=== PATIENT | female | born 1945 | race Caucasian/White ===

== ENCOUNTER 2018-02-27 13:09 | Emergency (ER) | payer MEDICARE ==
[~2018-02-27] VITALS: Ht 160 cm; Wt 90.7 kg
[2018-02-27 13:58] VITALS: BP 116/69
--- NOTE | 2018-02-27 15:47 | PHYS DOC ---
Past History Past Medical History: Bronchitis, Depression, High Cholesterol, Hypertension Past Surgical History: Tonsillectomy, Other Additional Smoking Information: 1/4 PACK/DAY Alcohol Use: Rarely Drug Use: None Adult General Chief Complaint Chief Complaint: DENTAL PROBLEM HPI HPI 73-year-old female presents with inability to remove a dental appliance. 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 She felt her lower partial denture come dislodged. When the patient went to remove the appliance she found that she could not get it out of her mouth. The appliance felt like it was pulling on her tongue. She denies any other injuries or complaints. Review of Systems Review of Systems Constitutional: Denies fever or chills [] Eyes: Denies change in visual acuity, redness, or eye pain [] HENT: Dental appliance stuck in her mouth[] Respiratory: Denies cough or shortness of breath [] Cardiovascular: No additional information not addressed in HPI [] GI: Denies abdominal pain, nausea, vomiting, bloody stools or diarrhea [] : Denies dysuria or hematuria [] Musculoskeletal: Denies back pain or joint pain [] Integument: Denies rash or skin lesions [] Neurologic: Denies headache, focal weakness or sensory changes [] Endocrine: Denies polyuria or polydipsia [] All other systems were reviewed and found to be within normal limits, except as documented in this note. Allergies Allergies Allergies Coded Allergies Type Severity Reaction Last Updated Verified No Known Drug Allergies 02/27/18 No Physical Exam Physical Exam Constitutional: Well developed, well nourished, no acute distress, non-toxic appearance. [] HENT: Normocephalic, atraumatic, bilateral external ears normal, oropharynx moist. The lower dental appliance had punctured a section of frenulum of the tongue. There was no bleeding.[] Eyes: PERRLA, EOMI, conjunctiva normal, no discharge. [] Neck: Normal range of motion, no tenderness, supple, no stridor. [] Cardiovascular:Heart rate regular rhythm, no murmur [] Lungs & Thorax: Bilateral breath sounds clear to auscultation [] Abdomen: Bowel sounds normal, soft, no tenderness, no masses, no pulsatile masses. [] Skin: Warm, dry, no erythema, no rash. [] Back: No tenderness, no CVA tenderness. [] Extremities: No tenderness, no cyanosis, no clubbing, ROM intact, no edema. [] Neurologic: Alert and oriented X 3, normal motor function, normal sensory function, no focal deficits noted. [] Psychologic: Affect normal, judgement normal, mood normal. [] Current Patient Data Vital Signs Vital Signs Date Time Temp Pulse Resp B/P (MAP) Pulse Ox O2 Delivery O2 Flow Rate FiO2 02/27/18 13:58 88 98 02/27/18 13:25 98.4 16 Room Air EKG EKG [] Radiology/Procedures Radiology/Procedures [] Course & Med Decision Making Course & Med Decision Making Pertinent Labs and Imaging studies reviewed. (See chart for details) Section of the patient's problem was stuck on the appliance. A small bar on the appliance and punctured through the frenulum. There was no bleeding. No additional trauma was noted. I was able to pull this up off of the appliance and then removed the appliance from her mouth. She tolerated it well. There were no complications. [] Dragon Disclaimer Dragon Disclaimer This electronic medical record was generated, in whole or in part, using a voice recognition dictation system. Departure Departure: Impression: Primary Impression: Superficial foreign body of oral cavity, initial encounter Disposition: 01 HOME, SELF-CARE Condition: STABLE RONY MCLAIN Feb 27, 2018 15:47
== END 2018-02-27 13:59 | disposition home or self-care (01) ==
LOC: ER 13:09
DX: S00.552A Superficial foreign body of oral cavity, initial encounter (principal); E78.00 Pure hypercholesterolemia, unspecified; I10 Essential (primary) hypertension; F17.200 Nicotine dependence, unspecified, uncomplicated; F32.9 Major depressive disorder, single episode, unspecified; X58.XXXA Exposure to other specified factors, initial encounter; Y93.G3 Activity, cooking and baking; Y92.89 Other specified places as the place of occurrence of the external cause; Y99.0 Civilian activity done for income or pay
CPT/HCPCS: 40804; 99284

== ENCOUNTER → 2018-05-09 | Outpatient (CLI) | payer MEDICARE ==
--- NOTE | 2018-05-09 15:51 | RAD ---
EXAM: Dual energy x-ray absorptiometry (DEXA). HISTORY: Post menopausal female presents for osteoporosis screening. COMPARISON: None. TECHNIQUE: Dual energy x-ray absorptiometry of the lumbar spine and right hip was performed. Calculation of bone mineral density based on standard deviations above or below the expected young adult normal value (T-score) was completed. FINDINGS: The average bone mineral density in the 1st through 4th lumbar vertebrae is 0.832 g/cmxcm, corresponding with a T-score of -2.9. The average total bone mineral density in the right hip is 0.587 g/cmxcm, corresponding with a T-score of -3.0. IMPRESSION: Osteoporosis measured at the lumbar spine and right hip. Note: Definitions established by the World Health Organization: 1. Normal: T-score is -1.0 or above. 2. Osteopenia: T-score is between -1.0 and -2.5 . 3. Osteoporosis: T-score is -2.5 or below. Electronically signed by: Desirae Barrientos MD (05/09/2018 3:47 PM) [place] [id number]
--- NOTE | 2018-05-10 07:30 | RAD ---
DATE: 05/09/2018 EXAM: MAMMO MATILDA SCREENING BILATERAL HISTORY: Screening Mammogram COMPARISON: Mammogram 05/13/20152009 This study was interpreted with the benefit of Computerized Aided Detection (CAD). The breast parenchyma shows scattered fibroglandular densities. Breast parenchyma level B. FINDINGS: Bilateral digital 2-D and 3-D tomosynthesis CC and MLO views. There is a stable focal asymmetry in the upper outer right breast, middle depth since 2010 examination and consider benign. There is a focal asymmetry in the upper outer left breast, middle depth. IMPRESSION: Left upper outer breast focal asymmetry. Spot compression CC and MLO views, full field MLO view and same-day ultrasound is recommended for further evaluation. BI-RADS CATEGORY: 0 INCOMPLETE: NEEDS ADDITIONAL IMAGING EVALUATION AND/OR PRIOR MAMMOGRAMS FOR COMPARISON. RECOMMENDED FOLLOW-UP: ADD ADDITIONAL IMAGING PQRS compliance statement: Patient information was entered into a reminder system with a target due date for the next mammogram. Mammography is a sensitive method for finding small breast cancers, but it does not detect them all and is not a substitute for careful clinical examination. A negative mammogram does not negate a clinically suspicious finding and should not result in delay in biopsying a clinically suspicious abnormality. "Our facility is accredited by the [employer] Mammography Program."
== END | disposition home or self-care (01) ==
LOC: DXRAD 13:56
PROVIDERS: ATTEND Specialist
DX: Z12.31 Encounter for screening mammogram for malignant neoplasm of breast (principal); M85.89 Other specified disorders of bone density and structure, multiple sites; Z78.0 Asymptomatic menopausal state
CPT/HCPCS: 77063; 77067; 77080

== ENCOUNTER → 2018-06-02 | Outpatient (CLI) | payer MEDICARE ==
--- NOTE | 2018-06-02 16:15 | RAD ---
DATE: 06/02/2018 EXAM: DIGITAL DIAGNOSTIC LT, BREAST LEFT HISTORY: Suspicious screening study COMPARISON: 05/09/2018 This study was interpreted with the benefit of Computerized Aided Detection (CAD). Breast Density: SCATTERED The breast parenchyma shows scattered fibroglandular densities. Breast parenchyma level B. FINDINGS: The screening study demonstrated a small asymmetric opacity in the lateral aspect of left breast at approximately the 2:00 location, best demonstrated on CC tomosynthesis image #57. This opacity was last clearly demonstrated on today's spot compression views, presumably due to technical factors such as overlying fibroglandular tissues. Left breast ultrasound, 06/02/2018: A targeted ultrasound exam of the left breast was performed in the upper outer quadrant. At the 2:30 location approximately 4 cm from the nipple there is an oval-shaped smooth nodule measuring 6 x 5 x 2 mm. There are faint low level internal echoes. This structure is wider than tall. No definite posterior acoustic enhancement or shadowing is seen. No internal vascularity is seen. This lesion has a fairly benign appearance, most likely a complicated cyst. It probably corresponds to the density seen mammographically, however, that cannot be stated with certainty. No other abnormal fluid collection or solid mass is seen in this region. IMPRESSION: Probably benign left breast nodule as described above. Follow-up left mammography and left breast ultrasound in 6 months is suggested. BI-RADS CATEGORY: 3 PROBABLY BENIGN FINDING(S)-SHORT INTERVAL FOLLOW-UP SUGGESTED RECOMMENDED FOLLOW-UP: 6M 6 MONTH FOLLOW-UP PQRS compliance statement: Patient information was entered into a reminder system with a target due date for the next mammogram. Mammography is a sensitive method for finding small breast cancers, but it does not detect them all and is not a substitute for careful clinical examination. A negative mammogram does not negate a clinically suspicious finding and should not result in delay in biopsying a clinically suspicious abnormality. "Our facility is accredited by the [employer] Mammography Program."
== END | disposition home or self-care (01) ==
LOC: MAMMO 14:57
PROVIDERS: ATTEND Specialist
DX: N63.21 Unspecified lump in the left breast, upper outer quadrant (principal)
CPT/HCPCS: 76641; 77065

== ENCOUNTER 2018-08-30 12:28 | Inpatient (IN) | payer MEDICARE ==
[~2018-08-30] VITALS: Ht 160 cm; Wt 101.6 kg
[2018-08-30] MEDS ORDERED: ASPIRIN 81 MG TAB.CHEW ONE (12:57)
--- NOTE | 2018-08-30 12:59 | PHYS DOC ---
Past History Past Medical History: Angina, COPD, GERD, High Cholesterol, Hypertension Past Surgical History: Tonsillectomy, Other Alcohol Use: None Drug Use: None Adult General Chief Complaint Chief Complaint: CHEST PAIN HPI HPI Patient is a 73 year old female who presents with complaint of chest pain. The patient states that she awoke with chest pain this morning. States that she started noticing tingling in her left arm during the middle of the night that was present when she woke up this morning. States over the past few hours she has had persistent substernal chest pain. Notes associated nausea but no vomiting or shortness of breath. 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 She states however she is not followed up with internal auditor over the past 10 years. The patient denies fever. Rates pain currently as 3 out of 10. Has not taking medications for symptoms. Has history of hypertension, hyperlipidemia. Review of Systems Review of Systems Constitutional: Denies fever or chills [] Eyes: Denies change in visual acuity, redness, or eye pain [] HENT: Denies nasal congestion or sore throat [] Respiratory: Denies cough or shortness of breath [] Cardiovascular: Chest pain, denies edema[] GI: Nausea, denies abdominal pain, vomiting, bloody stools or diarrhea [] : Denies dysuria or hematuria [] Musculoskeletal: Denies back pain or joint pain [] Integument: Denies rash or skin lesions [] Neurologic: Numbness to left arm, denies weakness[] All other systems were reviewed and found to be within normal limits, except as documented in this note. Current Medications Current Medications Current Medications Medications (Trade) Dose Ordered Sig/Kibmerly Start Time Stop Time Status Last Admin Dose Admin Aspirin (Children'S Aspirin) 324 mg 1X ONCE 08/30/18 13:00 08/30/18 13:01 UNV Sodium Chloride 500 ml @ 0 mls/hr 1X ONCE 08/30/18 13:00 08/30/18 13:01 UNV Allergies Allergies Allergies Coded Allergies Type Severity Reaction Last Updated Verified No Known Drug Allergies 02/27/18 No Physical Exam Physical Exam Constitutional: Alert, afebrile, no acute distress. [] HENT: Normocephalic, atraumatic, bilateral external ears normal, oropharynx moist, no oral exudates, nose normal. [] Eyes: PERRLA, EOMI, conjunctiva normal, no discharge. [] Neck: Normal range of motion, no tenderness, supple, no stridor. [] Cardiovascular:Heart rate regular rhythm, no murmur [] Lungs & Thorax: Bilateral breath sounds clear to auscultation [] Abdomen: Bowel sounds normal, soft, no tenderness, no masses, no pulsatile masses. [] Skin: Warm, dry, no erythema, no rash. [] Back: No tenderness, no CVA tenderness. [] Extremities: No tenderness, no cyanosis, no clubbing, ROM intact, no edema. [] Neurologic: Alert and oriented X 3, normal motor function, normal sensory function, no focal deficits noted. [] Current Patient Data Vital Signs Vital Signs Date Time Temp Pulse Resp B/P (MAP) Pulse Ox O2 Delivery O2 Flow Rate FiO2 08/30/18 12:40 97.8 91 18 95 Room Air Lab Results Laboratory Tests Test 08/30/18 12:45 08/30/18 13:12 White Blood Count 7.1 x10^3/uL Red Blood Count 4.88 x10^6/uL Hemoglobin 14.8 g/dL Hematocrit 44.7 % Mean Corpuscular Volume 92 fL Mean Corpuscular Hemoglobin 30 pg Mean Corpuscular Hemoglobin Concent 33 g/dL Red Cell Distribution Width 13.9 % Platelet Count 170 x10^3/uL Neutrophils (%) (Auto) 65 % Lymphocytes (%) (Auto) 27 % Monocytes (%) (Auto) 7 % Eosinophils (%) (Auto) 1 % Basophils (%) (Auto) 1 % Neutrophils # (Auto) 4.6 x10^3uL Lymphocytes # (Auto) 1.9 x10^3/uL Monocytes # (Auto) 0.5 x10^3/uL Eosinophils # (Auto) 0.0 x10^3/uL Basophils # (Auto) 0.0 x10^3/uL Troponin I Quantitative < 0.017 ng/mL Sodium Level 143 mmol/L Potassium Level 4.4 mmol/L Chloride Level 106 mmol/L Carbon Dioxide Level 28 mmol/L Anion Gap 9 Blood Urea Nitrogen 11 mg/dL Creatinine 0.8 mg/dL Estimated GFR (Cockcroft-Gault) 70.1 BUN/Creatinine Ratio 14 Glucose Level 149 mg/dL Calcium Level 8.5 mg/dL Magnesium Level 1.9 mg/dL Total Bilirubin 0.3 mg/dL Aspartate Amino Transf (AST/SGOT) 41 U/L Alanine Aminotransferase (ALT/SGPT) 58 U/L Alkaline Phosphatase 114 U/L Creatine Kinase 35 U/L Creatine Kinase MB (Mass) 0.5 ng/mL Creatine Kinase MB Relative Index 1.4 % CE-Xah-A-Type Natriuretic Peptide 105 pg/mL Total Protein 6.2 g/dL Albumin 3.4 g/dL Albumin/Globulin Ratio 1.2 Lipase 110 U/L Current Medications Medications (Trade) Dose Ordered Sig/Kimberly Route PRN Reason Start Time Stop Time Status Last Admin Dose Admin Aspirin (Children'S Aspirin) 324 mg 1X ONCE PO 08/30/18 13:15 08/30/18 13:16 DC 08/30/18 13:01 Sodium Chloride 500 ml @ 0 mls/hr 1X ONCE IV 08/30/18 13:00 08/30/18 13:02 DC 08/30/18 13:01 Aspirin (Children'S Aspirin) 81 mg STK-MED ONCE .ROUTE 08/30/18 12:57 08/30/18 12:58 DC EKG EKG Interpreted by me: Heart rate 87, sinus rhythm, leftward axis, normal intervals, no acute ST/T-wave abnormalities present[] Radiology/Procedures Radiology/[place] [address] IMAGING REPORT Signed PATIENT: DARLENE STRATTON ACCOUNT: [id number] : 1945 LOCATION: ER AGE: 73 SEX: F EXAM STATUS: REG ER ORD. PHYSICIAN: FREDI CHRIS MD REASON: CHEST PAIN PROCEDURE: PORTABLE CHEST 1V EXAM: Chest, single view. HISTORY: Chest pain. COMPARISON: None. FINDINGS: A frontal view of the chest is obtained. There is no infiltrate, pleural effusion or pneumothorax. The heart is normal in size for portable technique. IMPRESSION: No acute pulmonary finding. Electronically signed by: Desirae Butterfield MD (08/30/2018 1:26 PM) [place] [id number] DICTATED AND SIGNED BY: DESIRAE BUTTERFIELD MD DATE: 08/30/18 1326 CC: FREDI CHRIS MD; CARIN NOBLES MD ~ [] Course & Med Decision Making Course & Med Decision Making Pertinent Labs and Imaging studies reviewed. (See chart for details) Heart score is 6. Initial troponin negative. The patient was given aspirin. Patient states that her pain is 1 out of 10 on reevaluation. Given age and risk factors, the patient will need admission to the hospital for rule out of m yocardial infarction. I spoke with Dr. Marvin who accepted care of patient in hospital. A consult was placed to Dr. Ruiz of cardiology to follow with patient in hospital.[] Dragon Disclaimer Dragon Disclaimer This electronic medical record was generated, in whole or in part, using a voice recognition dictation system. Departure Departure: Impression: Primary Impression: Chest pain Additional Impressions: Hypertension Hyperlipidemia Disposition: ADMITTED INPATIENT Admitting Physician: Iron Marvin Condition: STABLE Referrals: CARIN NOBLES MD (PCP) Problem Qualifiers Primary Impression: Chest pain Chest pain type: unspecified Qualified Codes: R07.9 - Chest pain, unspecified Additional Impressions: Hypertension Hypertension type: unspecified Qualified Codes: I10 - Essential (primary) hypertension Hyperlipidemia Hyperlipidemia type: unspecified Qualified Codes: E78.5 - Hyperlipidemia, unspecified FREDI CHRIS MD August 30, 2018 12:59
[2018-08-30] MEDS ORDERED: IV NORMAL SALINE 500ML 500 ML IV ONE (13:00)
[2018-08-30 13:01] LABS: BASO % 1 % (0-3); EOS % 1 % (0-3); HEMATOCRIT 44.7 % (36.0-47.0); HEMOGLOBIN 14.8 g/dL (12.0-15.5); LYMPH # 1.9 x10^3/uL (1.0-4.8); LYMPH % 27 % (24-48); MEAN CORPUSCULAR HEMOGLOBIN 30 pg (25-35); MEAN CORPUSCULAR HGB CONC 33 g/dL (31-37); MEAN CORPUSCULAR VOLUME 92 fL (79-100); MONO # 0.5 x10^3/uL (0.0-1.1); MONO % 7 % (0-9); NEUT # 4.6 x10^3uL (1.8-7.7); NEUT % 65 % (31-73); PLATELET COUNT 170 x10^3/uL (140-400); RED BLOOD COUNT 4.88 x10^6/uL (3.50-5.40); RED CELL DISTRIBUTION WIDTH 13.9 % (11.5-14.5); WHITE BLOOD COUNT 7.1 x10^3/uL (4.0-11.0)
[2018-08-30] MEDS ORDERED: ASPIRIN 81 MG TAB.CHEW PO ONE (13:15)
--- NOTE | 2018-08-30 13:29 | RAD ---
EXAM: Chest, single view. HISTORY: Chest pain. COMPARISON: None. FINDINGS: A frontal view of the chest is obtained. There is no infiltrate, pleural effusion or pneumothorax. The heart is normal in size for portable technique. IMPRESSION: No acute pulmonary finding. Electronically signed by: Desirae Barrientos MD (08/30/2018 1:26 PM) [place] [id number]
[2018-08-30 13:48] LABS: ALBUMIN 3.4 g/dL (3.4-5.0); ALBUMIN/GLOBULIN RATIO 1.2 (1.0-1.7); CALCIUM 8.5 mg/dL (8.5-10.1); CREATININE 0.8 mg/dL (0.6-1.0); GFR 70.1; MAGNESIUM 1.9 mg/dL (1.8-2.4); POTASSIUM 4.4 mmol/L (3.5-5.1); TOTAL BILIRUBIN 0.3 mg/dL (0.2-1.0); TOTAL PROTEIN 6.2 g/dL (6.4-8.2)
[2018-08-30] MEDS: IV NORMAL SALINE 1,000ML 1,000 ML IV SCH ×2 (14:09→22:09)
[2018-08-30] MEDS ORDERED: ACETAMINOPHEN 325 MG TABLET PO PRN (14:15)
[2018-08-30] MEDS ORDERED: ONDANSETRON PF 4 MG/2 ML VIAL. IV PRN (14:15)
[2018-08-30 16:05] VITALS: BP 111/58
[2018-08-30] MEDS ORDERED: FLUT1AER IH (16:35)
[2018-08-30] MEDS ORDERED: FLUT9.9S NS (16:35)
[2018-08-30] MEDS ORDERED: ROPI0.5T PO (16:35)
[2018-08-30] MEDS ORDERED: CITA40TA12 PO (16:35)
[2018-08-30] MEDS ORDERED: CALC600T4 PO (16:35)
[2018-08-30] MEDS ORDERED: OMEG-33 PO (16:35)
[2018-08-30] MEDS ORDERED: RALO60TA PO (16:35)
[2018-08-30] MEDS ORDERED: LANS30CA66 PO (16:35)
[2018-08-30] MEDS ORDERED: MULT-496 PO (16:35)
[2018-08-30] MEDS ORDERED: CRAN500T2 PO (16:35)
[2018-08-30] MEDS ORDERED: ATOR20TA PO (16:42)
--- NOTE | 2018-08-30 17:25 | CONS ---
DATE OF CONSULTATION: 08/30/2018 REASON FOR CONSULTATION: Chest pain. CONSULTING PHYSICIAN: Iron Marvin MD HISTORY OF PRESENT ILLNESS: The patient is a pleasant 73-year-old who comes to the hospital in the setting of chest pain. She apparently was having some left-sided chest pain with some tingling down her left arm, which woke her up from sleep and she arrived to the ER. She states that this pain was intermittent. She has not had any such pain in the recent past. Previously, she was diagnosed with what appears to be vasospasm and/or Prinzmetal angina from her description and apparently was given nitroglycerin, and this was approximately 10 years ago. Since 10 years ago, she has not had any recurrence up until now. Unfortunately, she is under quite a lot of stress as this is the anniversary of her 's sudden passing. She reports compliance with her medications for hypertension, dyslipidemia as well as GERD and chronic obstructive pulmonary disease, likely related to her smoking. 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 PAST MEDICAL HISTORY: 1. Hypertension. 2. Tobacco abuse. 3. Dyslipidemia. 4. GERD. 5. Chronic bronchitis. 6. Obesity. 7. Prinzmetal angina. SOCIAL HISTORY: The patient smokes about 4 cigarettes daily. Denies any alcohol. She is . No illicit drug use. ALLERGIES: No known drug allergies. CURRENT CARDIOVASCULAR MEDICATIONS: 1. [place]-3 fatty acids. 2. Breo Ellipta. REVIEW OF SYSTEMS: Negative for 10 out of 14 systems reviewed, unless otherwise mentioned above in HPI. PHYSICAL EXAMINATION: VITAL SIGNS: Afebrile, 75, 18, 99/42, 97% on room air. GENERAL: She is alert and oriented, in no acute distress. HEAD AND NECK: Unremarkable. CARDIAC: Regular rate and rhythm without murmurs, rubs or gallops. LUNGS: Clear to auscultation bilaterally. ABDOMEN: Obese, protuberant, nontender, nondistended. EXTREMITIES: No clubbing, cyanosis or edema with 2+ radial and dorsalis pedis pulses. NEUROLOGIC: No focal deficits. MUSCULOSKELETAL: No trauma. DIAGNOSTIC STUDIES: EKG demonstrates sinus rhythm with a prior inferior infarct. CBC, BMP and initial cardiac enzymes are negative. Chest x-ray is unremarkable. IMPRESSION: Atypical chest pain. Differential diagnosis is broad and may include her Prinzmetal angina, she has had significant stressors and this may be stress-induced as well. Cannot rule out underlying obstructive coronary disease, although currently she appears to be low risk based on a negative biomarker and nonacute EKG. RECOMMENDATIONS: Monitor overnight. If no acute events overnight, we will send home on nitroglycerin as needed and consider addition of beta kartik. Otherwise, plan for outpatient stress testing. Thank you for this consultation. BECCA HAYNES MD DR: JC/jose ramon JOB#: [id number] / [id number]
[2018-08-30 18:54] VITALS: BP 107/80
[2018-08-30 22:58] VITALS: BP 115/72
[2018-08-31 05:09] VITALS: BP 117/77
[2018-08-31] MEDS: IV NORMAL SALINE 1,000ML 1,000 ML IV SCH (06:09)
--- NOTE | 2018-08-31 06:37 | EKG ---
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
--- NOTE | 2018-08-31 08:21 | PDOC ---
CARDIO Progress Notes Date & Time Date of Service DATE: 08/31/18 TIME: 08:18 Time of Evaluation 08:18 Subjective Notes Feeling better this morning. No further chest pain overnight Vitals Vitals Vital Signs Date Time Temp Pulse Resp B/P (MAP) Pulse Ox O2 Delivery O2 Flow Rate FiO2 08/31/18 05:09 97.6 65 18 117/77 (90) 94 Room Air Weight Weight [ ] Input and Output I.O. Intake and Output 08/31/18 07:00 Intake Total 500 ml Balance 500 ml IV Total 500 ml Laboratory Labs Laboratory Tests Test 08/30/18 12:45 08/30/18 13:12 08/30/18 17:45 08/30/18 21:30 White Blood Count 7.1 x10^3/uL (4.0-11.0) Red Blood Count 4.88 x10^6/uL (3.50-5.40) Hemoglobin 14.8 g/dL (12.0-15.5) Hematocrit 44.7 % (36.0-47.0) Mean Corpuscular Volume 92 fL (79-100) Mean Corpuscular Hemoglobin 30 pg (25-35) Mean Corpuscular Hemoglobin Concent 33 g/dL (31-37) Red Cell Distribution Width 13.9 % (11.5-14.5) Platelet Count 170 x10^3/uL (140-400) Neutrophils (%) (Auto) 65 % (31-73) Lymphocytes (%) (Auto) 27 % (24-48) Monocytes (%) (Auto) 7 % (0-9) Eosinophils (%) (Auto) 1 % (0-3) Basophils (%) (Auto) 1 % (0-3) Neutrophils # (Auto) 4.6 x10^3uL (1.8-7.7) Lymphocytes # (Auto) 1.9 x10^3/uL (1.0-4.8) Monocytes # (Auto) 0.5 x10^3/uL (0.0-1.1) Eosinophils # (Auto) 0.0 x10^3/uL (0.0-0.7) Basophils # (Auto) 0.0 x10^3/uL (0.0-0.2) Troponin I Quantitative < 0.017 ng/mL (0-0.055) < 0.017 ng/mL (0-0.055) < 0.017 ng/mL (0-0.055) Sodium Level 143 mmol/L (136-145) Potassium Level 4.4 mmol/L (3.5-5.1) Chloride Level 106 mmol/L (98-107) Carbon Dioxide Level 28 mmol/L (21-32) Anion Gap 9 (6-14) Blood Urea Nitrogen 11 mg/dL (7-20) Creatinine 0.8 mg/dL (0.6-1.0) Estimated GFR (Cockcroft-Gault) 70.1 BUN/Creatinine Ratio 14 (6-20) Glucose Level 149 mg/dL (70-99) Calcium Level 8.5 mg/dL (8.5-10.1) Magnesium Level 1.9 mg/dL (1.8-2.4) Total Bilirubin 0.3 mg/dL (0.2-1.0) Aspartate Amino Transf (AST/SGOT) 41 U/L (15-37) Alanine Aminotransferase (ALT/SGPT) 58 U/L (14-59) Alkaline Phosphatase 114 U/L (46-116) Creatine Kinase 35 U/L (26-192) Creatine Kinase MB (Mass) 0.5 ng/mL (0.0-3.6) Creatine Kinase MB Relative Index 1.4 % (0-4) BN-Rdv-G-Type Natriuretic Peptide 105 pg/mL (0-124) Total Protein 6.2 g/dL (6.4-8.2) Albumin 3.4 g/dL (3.4-5.0) Albumin/Globulin Ratio 1.2 (1.0-1.7) Lipase 110 U/L (73-393) Physical Exams HEENT: Neck Supple W Full Motion Chest: Symmetric Lungs: Clear to Auscultation Heart: S1S2, RRR, no murmurs Abdomen: Soft N/T Extremities: 2+ Dorsalis Pedis, No Edema Neurology: alert, oriented, follow commands Assessment Assessment 1. Chest pain, atypical. AMI ruled out 2. Hypertension; controlled 3. Hyperlipidemia 4. GERD Recommendations Echo today to assess LV systolic function Lipid panel Continue ASA, statin Will arrange for outpatient stress test with follow up. RENA RAMOS APRN August 31, 2018 08:21
[2018-08-31] MEDS ORDERED: ASPIRIN ENTERIC COATED 81 MG TABLET.DR. PO SCH (09:00)
[2018-08-31] MEDS ORDERED: ATORVASTATIN CALCIUM 20 MG TABLET PO SCH ×2 (09:00→21:00)
[2018-08-31 10:40] VITALS: BP 106/69
[2018-08-31 15:07] VITALS: BP 133/82
--- NOTE | 2018-08-31 18:06 | HP ---
ADMIT DATE: 08/30/2018 HISTORY OF PRESENT ILLNESS: The patient is a 73-year-old female patient who came to the Emergency Room complaining of chest pain. She stated that she awoke with chest pain in the morning of admission. She started noticing also tingling in her left arm during the middle of the night that was present when she woke up on the morning of admission, her pain has persisted in the substernal area. She noted some associated nausea, but no vomiting, no shortness of breath, and no diaphoresis. 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 She also had had stress test, but cannot remember how long ago. She rated her pain as 3/10 in severity, has not taken any medications for symptoms; however, she is known to have high blood pressure, hyperlipidemia. She was investigated in the Emergency Room and her lab work showed that her first set of cardiac enzyme was less than 0.017. She was admitted and has had to do 2 more sets of cardiac enzyme, check her fasting lipid profile and consult the gas appliance mechanic. PAST MEDICAL HISTORY: Significant for hypertension, hyperlipidemia, gastroesophageal reflux disease, obstructive sleep apnea. PAST SURGICAL HISTORY: Significant for tonsillectomy, D and C, left heart catheterization, esophagogastroduodenoscopy and colonoscopy with polypectomy. ALLERGIES: She has no known drug allergies. MEDICATIONS: She is currently on following medications: She is on atorvastatin calcium 20 mg at bedtime, omega-3 fatty acid 1000 mg softgel to take 2 capsules once a day, citalopram hydrobromide 40 mg daily, Requip 0.5 mg, she takes 2 tablets at bedtime; calcium carbonate 1200 mg twice a day; fluticasone/vilanterol for Breo Ellipta 1 puff once a day; Flonase 2 sprays to each nostril once a day; lansoprazole 30 mg once a day; raloxifene for Evista 60 mg once a day, multivitamin 1 tablet once a day, cranberry extract 500 mg daily. FAMILY HISTORY: She has 2 brothers and 2 sisters, 1 sister is older and still alive, has diabetes, lymphoma, osteoarthritis; the younger sister has hypertension, underwent lumpectomy and bilateral total knee arthroplasty. Her older brother has permanent pacemaker and hypertension; the younger brother of diabetes, myocardial infarction at age 61. Her father at the age of 85 because of COPD and bladder cancer. Mother at the age of 89 because of breast cancer and diabetes. SOCIAL HISTORY: She is , has 3 sons. Smokes about 5 cigarettes per day, does not drink alcohol. 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 REVIEW OF SYSTEMS: The patient denied any blurring of vision, cataract, glaucoma or macular degeneration. Denied any earache, tinnitus or sensorineural deafness. Denied any nosebleeds, stuffy nose or postnasal drip. Denied any sore throat, sore tongue, toothache, hoarseness of voice or difficulty swallowing. Did complain of nausea, but no vomiting. Denied any diarrhea or constipation. Denied any hematemesis, melena or hematochezia. Denied any dysuria, frequency or hematuria. PHYSICAL EXAMINATION: GENERAL: On arrival to the Emergency Room, she looked well and was clearly in no apparent respiratory distress, slightly pale, but no jaundice, cyanosis, or thyromegaly. No jugular venous distension. No limb edema. VITAL SIGNS: Her heart rate was 91, blood pressure was 112/56, temperature was 97.8, respiratory rate was 18 and oxygen saturation was 95%. HEAD, EYES, EARS, NOSE, AND THROAT: Showed normocephalic, atraumatic. NECK: Supple. HEART: Showed normal first and second heart sounds. No gallop, rub or murmur. CHEST: Clear to auscultation. No crepitation or rhonchi. ABDOMEN: Distended, soft, nontender. NEUROLOGIC: She is awake, alert, responding appropriately. All her cranial nerves are intact. EXTREMITIES: She moves extremities without difficulty. She ambulates without assistance or assistive devices. LABORATORY DATA: Showed a serum sodium 143, potassium 4.4, chloride 106, bicarbonate 26, anion gap of 9, BUN 11, creatinine was 0.8, estimated GFR was 70 mL per minute. Her glucose 149, calcium was 8.5, magnesium was 1.9. Total bilirubin, AST, ALT, alkaline phosphatase were normal. Her first set of cardiac enzymes showed troponin to be less than 0.017. Her total protein was 6.2, albumin was 3.4. Her lipase was 110. Her white cell count was 7000, hemoglobin 14, hematocrit 44, MCV 92, and platelet count of 170,000 with normal manual differential. She has had an EKG, which showed that she was in sinus rhythm with a heart rate of 87, normal intervals and no acute ST-T changes. The patient was admitted to do 2 more sets of cardiac enzymes, check her fasting lipid profile, and to consult the cardiology team. EMILEE CHRISTENSEN MD DR: TESSA/jose ramon JOB#: [id number] / [id number]
--- NOTE | 2018-08-31 21:02 | DS ---
DATE OF DISCHARGE: 08/31/2018 HOSPITAL COURSE: The patient is a 73-year-old female patient who presented to the hospital with chest pain. She has also tingling of her left arm, which woke her up from sleep. She was evaluated in the Emergency Room and was admitted. She has 3 sets of cardiac enzymes showed that all of them are less than 0.017. Her serum lipase is negative and her total serum triglycerides 113, total cholesterol 145, LDL was 60, VLDL 22, and HDL was 63 and the ratio was 2. As the myocardial infarction was ruled out, the decision was made to discharge her home to arrange for her to have a nuclear stress test as an outpatient. PHYSICAL EXAMINATION: GENERAL: When I examined her this afternoon, she was sitting on the edge of the bed comfortably, in no apparent respiratory distress. No pallor or jaundice, cyanosis or thyromegaly. No jugular venous distension. No lower limb edema. VITAL SIGNS: Her heart rate was 75, blood pressure was 133/82, temperature was 98.1, respiratory rate 20 and oxygen saturation was 92%. The rest of clinical examination is stable. She had 3 sets of cardiac enzymes which were negative. DISCHARGE MEDICATIONS: She was discharged home. She was on atorvastatin calcium 20 mg at bedtime, calcium carbonate 1200 mg p.o. b.i.d., citalopram hydrobromide for Celexa 40 mg daily, cranberry extract 500 mg daily, fluticasone propionate for Flonase 2 sprays to each nostril once a day. She is on Breo Ellipta 1 inhalation once a day, lansoprazole for Prevacid 30 mg once a day, multivitamin 1 tablet once a day, omega-3 fatty acid 2 capsules twice a day, Evista 60 mg once a day and Requip 1 mg at bedtime. FINAL DISCHARGE DIAGNOSES: Chest pain, atypical, myocardial infarction ruled out, hypertension, hyperlipidemia, gastroesophageal reflux disease. Her lipid profile was well controlled. DISCHARGE PLAN: Plan is to continue with all her current medication. An echocardiogram could not be done today. Therefore, the patient was discharged to be arranged to be done as an outpatient together with outpatient stress test. EMILEE CHRISTENSEN MD DR: TESSA/jose ramon JOB#: [id number] / [id number]
== END 2018-08-31 16:59 | disposition home or self-care (01) | DRG 313 ==
LOC: ER 12:28 → 1 SOUTH 14:14 → ER 15:44
PROVIDERS: ADMIT Internal Medicine; ATTEND Internal Medicine
DX: R07.89 Other chest pain (principal); E78.00 Pure hypercholesterolemia, unspecified; E78.5 Hyperlipidemia, unspecified; F17.210 Nicotine dependence, cigarettes, uncomplicated; G47.33 Obstructive sleep apnea (adult) (pediatric); I10 Essential (primary) hypertension; J44.9 Chronic obstructive pulmonary disease, unspecified; K21.9 Gastro-esophageal reflux disease without esophagitis; E66.9 Obesity, unspecified; Z80.3 Family history of malignant neoplasm of breast; Z80.52 Family history of malignant neoplasm of bladder; Z80.7 Family history of other malignant neoplasms of lymphoid, hematopoietic and related tissues; Z82.49 Family history of ischemic heart disease and other diseases of the circulatory system; Z83.3 Family history of diabetes mellitus; Z82.5 Family history of asthma and other chronic lower respiratory diseases; Z90.49 Acquired absence of other specified parts of digestive tract; Z68.39 Body mass index [BMI] 39.0-39.9, adult
CPT/HCPCS: 36415; 71045; 80053; 80061; 82553; 83690; 83735; 83880; 84484; 85025; 93005; 96360; J7040; 99285-25

== ENCOUNTER → 2018-12-06 | Outpatient (CLI) | payer MEDICARE ==
[~2018-12-06] MED LIST: ATOR20TA PO; CALC600T4 PO; CITA40TA12 PO; CRAN500T2 PO; FLUT1AER IH; FLUT9.9S NS; LANS30CA66 PO; MULT-496 PO; OMEG-33 PO; RALO60TA PO; ROPI0.5T PO
--- NOTE | 2018-12-06 18:24 | RAD ---
DATE: 12/06/2018 EXAM: MAMMO MATILDA FABIOLAG LT HISTORY: Abnormal mammogram COMPARISON: 05/09/2018 screening mammographic exam, 06/02/2018 left unilateral digital diagnostic mammogram This study was interpreted with the benefit of Computerized Aided Detection (CAD). Breast Density: SCATTERED The breast parenchyma shows scattered fibroglandular densities. Breast parenchyma level B. FINDINGS: Asymmetry involving the left breast at the 2:00 region is similar to the prior exam. No new mass or distortion. No suspicious calcification. IMPRESSION: Stable. Follow-up of the time of annual screening is recommended to assess stability. BI-RADS CATEGORY: 3 PROBABLY BENIGN FINDING(S)-SHORT INTERVAL FOLLOW-UP SUGGESTED RECOMMENDED FOLLOW-UP: 6M 6 MONTH FOLLOW-UP PQRS compliance statement: Patient information was entered into a reminder system with a target due date at the time of annual screening for the next mammogram. Mammography is a sensitive method for finding small breast cancers, but it does not detect them all and is not a substitute for careful clinical examination. A negative mammogram does not negate a clinically suspicious finding and should not result in delay in biopsying a clinically suspicious abnormality. "Our facility is accredited by the [employer] Mammography Program."
== END | disposition home or self-care (01) ==
LOC: MAMMO 13:03
PROVIDERS: ATTEND Specialist
DX: R92.2 Inconclusive mammogram (principal)
CPT/HCPCS: 77065; G0279; 77061

== ENCOUNTER → 2019-08-22 | Outpatient (CLI) | payer MEDICARE ==
--- NOTE | 2019-08-24 18:13 | RAD ---
DATE: 08/22/2019 1:30 PM EXAM: MAMMO MATILDA SCREENING BILATERAL HISTORY: Screening COMPARISON: 05/09/2018 Bilateral CC and MLO views of the breasts were performed. Bilateral breast tomosynthesis was performed in CC and MLO projections. This study was interpreted with the benefit of Computerized Aided Detection (CAD). FINDINGS: Breast Density: FATTY The Breast Parenchyma is primarily fatty replaced. Breast parenchyma level density A. No suspicious masses, microcalcifications or architectural distortion is present to suggest malignancy in either breast. The visualized axillae are unremarkable. IMPRESSION: No mammographic evidence of malignancy. BI-RADS CATEGORY: 1 NEGATIVE RECOMMENDED FOLLOW-UP: 12M 12 MONTH FOLLOW-UP Annual screening mammography is recommended, unless clinically indicated sooner based on symptoms or change in physical exam. PQRS compliance statement: Patient information was entered into a reminder system with a target due date 08/22/2020 for the next mammogram. Mammography is a sensitive method for finding small breast cancers, but it does not detect them all and is not a substitute for careful clinical examination. A negative mammogram does not negate a clinically suspicious finding and should not result in delay in biopsying a clinically suspicious abnormality. "Our facility is accredited by the [employer] Mammography Program."
== END ==
LOC: MAMMO 13:26
PROVIDERS: ATTEND Specialist
DX: Z12.31 Encounter for screening mammogram for malignant neoplasm of breast (principal)
CPT/HCPCS: 77063; 77067

== ENCOUNTER → 2021-02-17 | Outpatient (CLI) | payer MEDICARE ==
[~2021-02-17] MED LIST changes: -CALC600T4 PO; +CALC600T60 PO; -CRAN500T2 PO; +CRAN500T3 PO
--- NOTE | 2021-02-17 16:22 | RAD ---
INDICATION: Screening for osteopenia/osteoporosis. Reason: Z00.00 / Spl. Instructions: / History: . Postmenopausal screening COMPARISON: May 2015 TECHNIQUE: Bone densitometry was performed through the lumbar spine and proximal femur. IMPRESSION: Lumbar Spine: BMD: 0.85 T-Score: -2.8 Range: Osteoporotic. Decreased by 2 percent from prior. Proximal Femur: BMD: 0.55 T-Score: -3.3 Range: Osteoporotic. Decreased by 14 percent from prior. World Health Organization Criteria for Bone Density: T-Score: > -1.0: Normal Range < -1.0 to -2.5: Osteopenic Range < -2.5: Osteoporotic Range Electronically signed by: Tho Levy MD (02/17/2021 4:19 PM) [id number]
== END ==
LOC: DXRAD 13:13
PROVIDERS: ATTEND Specialist
DX: M81.8 Other osteoporosis without current pathological fracture (principal)
CPT/HCPCS: 77080

== ENCOUNTER → 2021-07-14 | Outpatient (CLI) | payer MEDICARE ==
--- NOTE | 2021-07-14 15:46 | RAD ---
EXAMINATION: CT chest without IV contrast INDICATION:76 years, Female, nicotine dependence, screening for lung cancer. COMPARISON: None TECHNIQUE: Low-dose CT scan of the chest with 3-D MIP coronal and sagittal reconstructions was acquir ed. Exposure: One or more of the following individualized dose reduction techniques were utilized for [facility] examination: 1. Automated exposure control 2. Adjustment of the mA and/or kV according to patient size 3. Use of iterative reconstruction technique. Lung-RADS assessment categories: 0: Incomplete. Additional lung cancer screening CT images and/or comparison to prior chest CT examina tions is needed. 1: Negative. Continue annual screening with low dose CT (LDCT) in 12 months. 2: Benign appearance or behavior. Continue annual screening with LDCT in 12 months. 3: Probably benign. 6 month follow-up LDCT recommended. 4A: Suspicious. 3 month LDCT follow up, PET/CT may be used when there is ? 8mm (? 268 mm3) solid comp onent. 4B or 4X: Very Suspicious. Chest CT with or without contrast, PET/CT, and/or biopsy recommended. PET/ CT may be used when there is ? 8mm (? 268 mm3) solid component. For new large nodules that develop on an annual repeat screening CT, a 1 month LDCT may be recommended to address potentially infectious o r inflammatory conditions. Modifiers: S: Clinically significant or potentially clinically significant findings (non-lung cancer). Exposure: One or more of the following individualized dose reduction techniques were utilized for [facility] examination: 1. Automated exposure control 2. Adjustment of the mA and/or kV according to patient size 3. Use of iterative reconstruction technique. FINDINGS: LUNGS/PLEURA: The pulmonary parenchyma appears within normal limits. No suspicious pulmonary nodules are visualized. No pleural effusion or focal pleural lesion. MEDIASTINUM: No pathologic mediastinal or hilar adenopathy. The thoracic aorta and pulmonary arteries are normal in caliber. The heart is normal in size. No pericardial effusion. Mild calcified coronary atherosclerosis. The visualized thyroid and the esophagus are unremarkable. AXILLA/SOFT TISSUE: No supraclavicular or axillary adenopathy. Regional soft tissues are within alexia l limits. UPPER ABDOMEN: Partially visualized 2.3 cm hypoattenuating lesion exophytic from the anterior right r enal cortex. BONES: No evidence of acute fractures or aggressive osseous lesions. IMPRESSION: 1. Lung-RADS 1: Negative. Continue annual screening with low dose CT (LDCT) in 12 months. 2. Partially visualized 2.3 cm hypoattenuating lesion exophytic from the anterior right renal cortex, indeterminate probably representing cyst. Recommend further evaluation with renal ultrasound. Electronically signed by: Cate Hernandez MD (07/14/2021 3:43 PM) [facility]
== END ==
LOC: CT 13:03
PROVIDERS: ATTEND Specialist
DX: Z12.2 Encounter for screening for malignant neoplasm of respiratory organs (principal); F17.210 Nicotine dependence, cigarettes, uncomplicated; I25.10 Atherosclerotic heart disease of native coronary artery without angina pectoris
CPT/HCPCS: 71271